=== PATIENT | male | born 1930 | race Caucasian/White ===

== ENCOUNTER 2019-09-07 17:10 | Observation (INO) ==
[2019-09-07] MEDS ORDERED: Naloxone 0.4 MG/ML INJ IVP PRN (23:14)
[2019-09-07] MEDS ORDERED: 0.9 % Sodium Chloride 250 ML IVC ONE (23:20)
[2019-09-07] MEDS ORDERED: Aspirin 325 MG TABLET PO ONE (23:55)
[2019-09-08 00:17] LABS: INR 1.2; Prothrombin Time 13.2 Seconds (9.4-12.1)
[2019-09-08 00:17] LABS: Basophils # 0.1 K/mcL (0.0-0.2); Basophils % 0.7 %; Eosinophils # 0.1 K/mcL (0.0-0.6); Eosinophils % 0.6 %; Hematocrit 37.2 % (37.5-50.1); Hemoglobin 12.3 g/dL (12.9-16.9); Immature Granulocytes % 0.4 % (0-4); Lymphocytes # 2.7 K/mcL (0.6-4.6); Mean Corpuscular HGB Conc 33.1 g/dL (31.6-35.5); Mean Corpuscular Hemoglobin 31.1 pg (28.0-33.3); Mean Corpuscular Volume 94.2 fL (83.0-100.0); Mean Platelet Volume 9.4 fL (9.4-12.4); Monocytes % 11.4 %; Neutrophils # 5.2 K/mcL (1.6-8.9); Platelet Count 289 K/mcL (140-400); Red Blood Count 3.95 M/mcL (4.19-5.50); Red Cell Distribution Width 12.3 % (11.5-14.5); Segmented Neutrophils % 56.9 %
[2019-09-08 00:20] LABS: Activated Partial Thrombo Time 32.4 Seconds (26.0-36.0)
[2019-09-08 00:34] LABS: Albumin 4.1 g/dL (3.5-5.7); Albumin/Globulin Ratio 1.1 (1.1-2.2); Bilirubin,Total 0.7 mg/dL (0.3-1.0); Calcium 10.3 mg/dL (8.6-10.3); Globulin 3.6 g/dL (2.4-3.5); Phosphorous 3.8 mg/dL (2.7-4.5); Total Protein 7.7 g/dL (6.4-8.9)
[2019-09-08 00:57] LABS: Troponin I 0.05 ng/mL (< 0.04)
[2019-09-08] MEDS ORDERED: 0.9 % Sodium Chloride 1,000 ML IVC SCH ×2 (05:30→21:45)
[2019-09-08] MEDS: amLODIPine 5 MG TABLET PO SCH (08:28)
[2019-09-08] MEDS: *HR* Heparin 5,000 UNIT/ML VIAL SQ SCH ×3 (08:28→20:03)
[2019-09-08] MEDS: Cholecalciferol (D-3) 1,000 UNIT (25MCG) TABLET PO SCH (08:28)
[2019-09-08] MEDS ORDERED: Ondansetron 4 MG/2 ML VIAL IVP PRN (11:55)
[2019-09-08 12:19] LABS: Calcium 9.7 mg/dL (8.6-10.3); Potassium 3.6 mEq/L (3.5-5.1); Uric Acid 12.2 mg/dL (2.3-7.6)
[2019-09-08 12:22] LABS: Troponin I 0.05 ng/mL (< 0.04)
[2019-09-08 14:42] LABS: Bilirubin,Urine Negative (Negative); Blood,Urine Large (Negative); Clarity,Urine Turbid (Clear); Color,Urine Yellow (Yellow); Glucose,Urine (UA) Normal (Normal); Ketones,Urine Trace mg/dL (Negative); Leukocyte Esterase,Urine Large (Negative); Nitrite,Urine Negative (Negative); PH,Urine 5.5 pH Units (5.0-8.0); Protein,Urine 30 mg/dL (Neg-Trace); Urobilinogen,Urine Normal (Normal)
[2019-09-08 14:47] LABS: Bacteria,Urine None Seen per hpf (None-Few); Hyaline Casts,Urine None Seen per lpf (None-Few); RBC,Urine 15-30 per hpf (0-3); Squamous Epithelial Cell,Urine None Seen per lpf (None-Few); WBC,Urine TNTC per hpf (0-3)
[2019-09-08] MEDS ORDERED: Mirtazapine 15 MG TABLET PO SCH (21:00)
[2019-09-09 04:23] LABS: Potassium 3.8 mEq/L (3.5-5.1)
[2019-09-09] MEDS: *HR* Heparin 5,000 UNIT/ML VIAL SQ SCH (06:27)
[2019-09-09 07:34] VITALS: BP 135/67
[2019-09-09] MEDS: amLODIPine 5 MG TABLET PO SCH (07:54)
[2019-09-09] MEDS: Cholecalciferol (D-3) 1,000 UNIT (25MCG) TABLET PO SCH (07:55)
[2019-09-09] MEDS ORDERED: Megestrol Acetate 400 MG/10 ML UDC PO SCH (09:00)
== END 2019-09-09 12:31 | disposition home or self-care (01) ==
LOC: 2ANU → SUATTDRO 18:41 → 2ANU 19:03
PROVIDERS: ADMIT Internal Medicine; ATTEND Internal Medicine